=== PATIENT | female | born 1985 | race Caucasian/White ===

== ENCOUNTER 2020-04-13 17:41 | Observation (INO) | payer OTHER ==
[~2020-04-13] VITALS: Ht 157.5 cm; Wt 57.8 kg
[2020-04-13 18:23] LABS: BASOPHILS ABSOLUTE AUTO 0.03 K/mm3 (0.00-0.23); BASOPHILS PERCENT AUTO 1 % (0-2); EOSINOPHILS ABSOLUTE AUTO 0.26 K/mm3 (0.00-0.68); EOSINOPHILS PERCENT AUTO 4 % (0-6); Hemoglobin 10.9 g/dL (11.5-16.0); IMMATURE GRAN ABSOLUTE AUTO 0.01 K/mm3 (0.00-0.10); IMMATURE GRAN PERCENT AUTO 0 % (0-1); LYMPHOCYTES ABSOLUTE AUTO 1.09 K/mm3 (0.84-5.20); LYMPHOCYTES PERCENT AUTO 17 % (21-46); MONOCYTES ABSOLUTE AUTO 0.61 K/mm3 (0.16-1.47); MONOCYTES PERCENT AUTO 9 % (4-13); Mean Corpuscular HGB 32.2 pg (26.0-34.0); Mean Corpuscular HGB Conc 31.1 g/dL (31.5-36.5); Mean Corpuscular Volume 104 fL (80-100); Mean Platelet Volume 9.3 fL (9.1-12.4); NEUTROPHILS ABSOLUTE AUTO 4.55 K/mm3 (1.96-9.15); NEUTROPHILS PERCENT AUTO 69 % (41-73); Platelet Count 263 K/mm3 (150-400); RDW Coefficient Variation 13.8 % (11.7-14.2); Red Blood Cell Count 3.38 M/mm3 (3.80-5.20); White Blood Cell Count 6.55 K/mm3 (4.00-11.30)
[2020-04-13 18:38] LABS: Magnesium, Blood 3.1 mg/dL (1.6-2.4)
[2020-04-13 18:47] LABS: Albumin, Blood 3.4 g/dL (3.4-5.0); Albumin/Globulin Ratio 0.6 (0.8-1.8); Bilirubin, Total 0.4 mg/dL (0.1-1.0); Bun/Creatinine Ratio 8.6 (12.0-20.0); Calcium, Blood 9.1 mg/dL (8.5-10.1); Globulin, Blood 5.4 g/dL (2.2-4.0); Total Protein, Blood 8.8 g/dL (6.4-8.2)
[2020-04-13] MEDS ORDERED: SUCROFERRIC OXYHYDROXIDE PO (19:51)
[2020-04-13] MEDS ORDERED: LOKELMA 10 GM PO (19:53)
[2020-04-13] MEDS ORDERED: ELIQUIS5 MG PO (20:42)
--- NOTE | 2020-04-13 21:01 | NUR ---
HD 1:1 NON-ROUTINE HOURS HEMODIALYSIS ORDERED BY DR CHAMBERLAIN FOR TRANSIENT PATIENT FROM [facility] WHO PRESENTED TO ER REQUESTING DIALYSIS WITH SERUM K+ 7.0
[2020-04-13] MEDS ORDERED: Calcium Acetat667 MG PO (21:08)
[2020-04-13] MEDS ORDERED: Imdur30 MG PO (21:09)
[2020-04-13] MEDS ORDERED: CARVEDILOL3.125 MG PO (21:09)
[2020-04-13] MEDS ORDERED: Nicoderm Cq1 EACH TD (21:09)
[2020-04-13] MEDS ORDERED: CINA30 PO (21:10)
[2020-04-13] MEDS ORDERED: ADALAT CC30 MG PO (21:10)
[2020-04-13] MEDS ORDERED: SKYADERM-LP 2.1 EACH TOP (21:12)
--- NOTE | 2020-04-14 01:27 | NUR ---
SHORT STAY SUMMARY PT ARRIVED TO THE UNIT AROUND 2120, ABLE TO AMBULATE WITH NO COMPLAINTS OF PAIN OR SOB. BP HYPERTENSIVE 170'S/100'S. HR 80-90'S. ON ROOM AIR WITH O2 SATS >97%. PT WAS ALERT AND ORIENTED BUT DIFFICULT TO DIRECT WITH QUESTIONS, SEEMED VERY ANXIOUS AND FIDGETY. PT CONSTANTLY STATED SHE ONLY WANTED DIALYSIS AND THAT WAS THE ONLY REASON SHE WAS HERE. PT COMPLETED DIALYSIS AND STATED SHE WAS LEAVING. EDUCATED PATIENT ABOUT THE RISKS OF LEAVING AMA. PT VERY DETERMINED TO LEAVE IMMEDIATELY. PT SIGNED AMA PAPERWORK, I PULLED HER IV AND SHE WALKED OUT.
== END 2020-04-14 00:57 | disposition home or self-care (01) ==
LOC: ER 17:41 → PCU 21:02
PROVIDERS: Physician Assistant; ADMIT Family Medicine
DX: I12.0 Hypertensive chronic kidney disease with stage 5 chronic kidney disease or end stage renal disease (principal); N18.6 End stage renal disease; D63.1 Anemia in chronic kidney disease; E87.79 Other fluid overload; E87.5 Hyperkalemia; E87.1 Hypo-osmolality and hyponatremia; I16.0 Hypertensive urgency; N25.81 Secondary hyperparathyroidism of renal origin; L03.114 Cellulitis of left upper limb; F41.9 Anxiety disorder, unspecified; F17.210 Nicotine dependence, cigarettes, uncomplicated; R60.0 Localized edema; Z99.2 Dependence on renal dialysis; Z91.15 Patient's noncompliance with renal dialysis; Z79.01 Long term (current) use of anticoagulants
CPT/HCPCS: 80053; 82947; 83735; 85025; 93005; 93010; 94644; 96374; 96375; 99285-25; A9270; G0257; G0378; J0610; J1815

== ENCOUNTER 2020-04-16 17:41 | Observation (INO) | payer OTHER ==
[~2020-04-16] VITALS: Ht 157.5 cm; Wt 57.6 kg
[~2020-04-16 17:41] MED LIST: ADALAT CC30 MG PO; CARVEDILOL3.125 MG PO; CINA30 PO; Calcium Acetat667 MG PO; ELIQUIS5 MG PO; Imdur30 MG PO; LOKELMA 10 GM PO; Nicoderm Cq1 EACH TD; SKYADERM-LP 2.1 EACH TOP; SUCROFERRIC OXYHYDROXIDE PO
[2020-04-16 19:10] LABS: BASOPHILS ABSOLUTE AUTO 0.03 K/mm3 (0.00-0.23); BASOPHILS PERCENT AUTO 1 % (0-2); EOSINOPHILS PERCENT AUTO 2 % (0-6); Hematocrit 36.1 % (33.0-51.0); Hemoglobin 11.6 g/dL (11.5-16.0); IMMATURE GRAN ABSOLUTE AUTO 0.02 K/mm3 (0.00-0.10); IMMATURE GRAN PERCENT AUTO 0 % (0-1); LYMPHOCYTES PERCENT AUTO 12 % (21-46); MONOCYTES PERCENT AUTO 12 % (4-13); Mean Corpuscular HGB 32.6 pg (26.0-34.0); Mean Corpuscular HGB Conc 32.1 g/dL (31.5-36.5); Mean Corpuscular Volume 101 fL (80-100); Mean Platelet Volume 9.9 fL (9.1-12.4); NEUTROPHILS ABSOLUTE AUTO 3.88 K/mm3 (1.96-9.15); NEUTROPHILS PERCENT AUTO 74 % (41-73); Platelet Count 202 K/mm3 (150-400); RDW Coefficient Variation 13.7 % (11.7-14.2); RDW Standard Deviation 50.8 fL (35.1-46.3); Red Blood Cell Count 3.56 M/mm3 (3.80-5.20); White Blood Cell Count 5.23 K/mm3 (4.00-11.30)
[2020-04-16 19:35] LABS: Albumin, Blood 3.6 g/dL (3.4-5.0); Albumin/Globulin Ratio 0.6 (0.8-1.8); Bilirubin, Total 0.4 mg/dL (0.1-1.0); Calcium, Blood 9.8 mg/dL (8.5-10.1); Globulin, Blood 5.6 g/dL (2.2-4.0); Total Protein, Blood 9.2 g/dL (6.4-8.2)
[2020-04-16 19:37] LABS: Bun/Creatinine Ratio 8.4 (12.0-20.0); Creatinine, Blood 10.1 mg/dL (0.40-1.00); Potassium, Blood 7.5 mmol/L (3.5-5.5)
[2020-04-16] MEDS ORDERED: SENSIPAR60 MG PO (19:54)
--- NOTE | 2020-04-16 21:45 | NUR ---
ADMIT/ASSESSMENT PT ADMITTED TO ICU 16 VIA ER. PT ARRIVED VIA GURNEY AND TRANSFERED TO BED BY STAFF WITH SLIDER SHEET. PT AWAKE A&O. C/O PAIN TO BACK/GROIN AND LEFT ARM STATES,"01/22". LUNGS CLEAR ON ROOMAIR. RESP EVEN AND NONLABORED. SPO2 99-100% ON ROOMAIR. HEART RATE REGULAR 90'S. BP ELEVATED. AWAITING DIALYSIS. IV 24 G TO RIGHT HAND, SALINE LOCKED. CENTRAL LINE TO RIGHT GROIN, BLOODY DRAINAGE AROUND CATH. DRSG CHANGED. AV FISTULA TO LEFT UPPER ARM. PT ABLE TO ANSWER QUESTIONS AND MOVE SELF AROUND IN BED.
--- NOTE | 2020-04-16 22:46 | NUR ---
PAIN/DIET/HYPERTENSION CALL TO DR MELO REGARDING C/O PAIN TO LEFT ARM. RECEIVED ORDER FOR FENTANYL. NOTIFIED REGARDING HTN 213/113, PT JUST STARTING DIALYSIS, CONT TO MONITOR AT THIS TIME. INCREASED DIET TO RENAL. PT GIVEN SANDWICH, ICE CREAM AND ICE WATER.
--- NOTE | 2020-04-16 23:02 | NUR ---
PAIN DIALYSIS IN PROGRESS. PT MED WITH FENTANYL 25 MCQ FOR GENERAL PAIN.
--- NOTE | 2020-04-16 23:44 | NUR ---
ANXIOUS PT MOANING AND CRYING. MED WITH ATIVAN 0.5 MG IV. DIALYSIS RUNNING
--- NOTE | 2020-04-17 01:43 | NUR ---
DIALYSIS PT SLEEPING. DIALYSIS COMPLETE. 3000ML OFF. ANCEF GIVEN.
[2020-04-17 03:51] LABS: BASOPHILS ABSOLUTE AUTO 0.03 K/mm3 (0.00-0.23); BASOPHILS PERCENT AUTO 1 % (0-2); EOSINOPHILS ABSOLUTE AUTO 0.06 K/mm3 (0.00-0.68); EOSINOPHILS PERCENT AUTO 1 % (0-6); Hematocrit 33.4 % (33.0-51.0); Hemoglobin 10.5 g/dL (11.5-16.0); IMMATURE GRAN ABSOLUTE AUTO 0.01 K/mm3 (0.00-0.10); IMMATURE GRAN PERCENT AUTO 0 % (0-1); LYMPHOCYTES ABSOLUTE AUTO 0.52 K/mm3 (0.84-5.20); LYMPHOCYTES PERCENT AUTO 8 % (21-46); MONOCYTES ABSOLUTE AUTO 0.76 K/mm3 (0.16-1.47); MONOCYTES PERCENT AUTO 12 % (4-13); Mean Corpuscular HGB Conc 31.4 g/dL (31.5-36.5); Mean Corpuscular Volume 102 fL (80-100); Mean Platelet Volume 9.8 fL (9.1-12.4); NEUTROPHILS ABSOLUTE AUTO 5.04 K/mm3 (1.96-9.15); NEUTROPHILS PERCENT AUTO 79 % (41-73); Platelet Count 261 K/mm3 (150-400); RDW Coefficient Variation 13.6 % (11.7-14.2); RDW Standard Deviation 51.4 fL (35.1-46.3); Red Blood Cell Count 3.28 M/mm3 (3.80-5.20); White Blood Cell Count 6.42 K/mm3 (4.00-11.30)
[2020-04-17 04:12] LABS: Albumin, Blood 3.4 g/dL (3.4-5.0); Albumin/Globulin Ratio 0.6 (0.8-1.8); Bilirubin, Total 0.3 mg/dL (0.1-1.0); Bun/Creatinine Ratio 7.3 (12.0-20.0); Calcium, Blood 9.3 mg/dL (8.5-10.1); Creatinine, Blood 6.01 mg/dL (0.40-1.00); Globulin, Blood 5.7 g/dL (2.2-4.0); Magnesium, Blood 2.3 mg/dL (1.6-2.4); Phosphorus, Blood 4.6 mg/dL (2.5-4.9); Potassium, Blood 5.7 mmol/L (3.5-5.5); Total Protein, Blood 9.1 g/dL (6.4-8.2)
--- NOTE | 2020-04-17 06:02 | NUR ---
SHIFT SUMMARY PT ADMITED TO ICU 16 DURING THE NIGHT. DIALYSIS DONE WITH 3000 ML REMOVED. HTN RESOLVED WITH DIALYSIS. PT MED WITH FENTANYL 25 MCQ FOR GENERAL PAIN WITH LITTLE RESULTS. PT MED WITH ATIVAN 0.5 MG FOR ANXIETY WITH GOOD RESULTS. CENTRAL LINE TO RIGHT GROIN DRSG CHANGED THREE TIMES DURING THE NIGHT DUE TO BLEEDING AT SITE. HOANG DRSG APPLIED TO HELP STOP BLEEDING WITH GOOD RESULTS. AV FISTULA TO LEFT UPPER ARM DRSG INTACT, NO BLEEDING. LEFT LOWER ARM WITH SWELLING AND REDNESS, NO CHANGE DURING THE NIGHT. PT MOVING SELF AROUND IN BED. VSS. NO ACUTE CHANGE. POSSIBLE DIALYSIS AGAIN TODAY. REPORT TO ON COMING NURSE.
--- NOTE | 2020-04-17 08:00 | NUR ---
ASSUMED CARE BEDSIDE REPORT RECIEVED. PT IS SLEEPING INITIALLY. PT AROUSEABLE TO VERBAL STIMULI. PT IS DROWSEY, BUT ALERT AND ORIENTED. PT DENIES PAIN OR DISCOMFORT AT THIS TIME. VITAL SIGNS STABLE. AV FISTULA TO ALEX NOTED. DRESSING IN PLACE. LEFT ARM REDDENED AND SWOLLEN. CENTRAL LINE TO RIGHT FEMORAL SITE IN PLACE, SALINE LOCKED. PT MAEW. WILL CONTINUE TO MONITOR.
--- NOTE | 2020-04-17 17:38 | NUR ---
SHIFT SUMMARY/TRANSFER OUT NO ACUTE CHANGES THIS SHIFT. PT HAS SLEPT OFF AND ON THROUGHOUT THE DAY. WHEN AWAKE PT IS ALERT AND ORIENTED. VITAL SIGNS STABLE. PT ON ROOM AIR. PT RECIEVED DIALYSIS THIS AFTERNOON WITH AROUND 2200 ML FLUID OFF. PT WITH SWELLING AND REDDENED AREA TO LEFT ARM IS UNCHANGED. CENTRAL LINE TO RIGHT FEMORAL SITE IS IN PLACE, SALINE LOCKED. PT SIGNIFICANT OTHER AT BEDSIDE AT THIS TIME. REPORT CALLED, PT TO BE TRANSFERED TO ROOM [facility] AT THIS TIME. PT TAKEN BY CORRECTIONAL PROGRAM SPECIALIST VIA BED. ALL PT BELONGINGS TAKEN WITH PT.
--- NOTE | 2020-04-17 17:38 | NUR ---
RECEIVED REPORT FROM CHITO FROM ICU. PT TO TRANSFER TO ROOM 211. CC
--- NOTE | 2020-04-17 18:04 | NUR ---
ARRIVED FROM ICU AT 1745. PT ARRIVED FROM ICU, TRANSFERRED ON BED INDEPENDTLY. PT DENIES PAIN, CHEST PAIN, SOB, NAUSEA AND VOMITING. PT HAS A CENTRAL LINE IN HER R GROIN, PATENT. LEFT UPPER ARM FISTULA IS PRESENT FOR DIALYSIS TREATMENT. LEFT ARM IS SWELLING AND OOZING R/T CELLULITS. SHE IS ALERT AND ORIENTED. DECREASE APPETITE BUT DENIES N/V. LUNGS ARE CLEAR. PT DENIES NUMBNESS AND TINGLING SENSATION. CALL LIGHT W/IN REACH.
--- NOTE | 2020-04-17 19:18 | NUR ---
SHIFT SUMMARY PT ARRIVED FROM ED AT 1845. PT INDEPENDENT IN ROOM. PT DENIES CP, NUMBNESS AND TINGLING SENSATION. HE HAS CA GLUCONATE INFUSING ON R ARM. LEFT ARM HAS FISTULA. LUNGS ARE CLEAR. PT REPORTS CHRONIC SOB. PULSES ON ALL EXT ARE WNL. HEPARIN DRIP BAG WAS BROUGHT IN FROM ED. HE IS ALERT AND ORIENTED. HE DENIES PAIN, NAUSEA AND VOMITING. CALL LIGHT W/IN REACH.
--- NOTE | 2020-04-18 04:00 | NUR ---
COMMERCIAL LOAN PROCESSOR SUMMARY A/OX4, IND TO BATHROOM. L ARM FISTULA NOTED WELL CENTRAL LINE TO R. GROIN. L. ARM HAS SWELLING, REDNESS, AND WARMTH TO THE TOUCH. PT C/O PAIN IN THE AREA, MEDICATED PER EMAR X2. RECIEVED IV ANCEF THIS SHIFT. VSS, NO ACUTE CHANGES AT THIS TIME. BED IN LOWEST POSITION WITH CALL LIGHT IN REACH. WILL CONTINUE TO MONITOR AND REPORT TO ONCOMING RN.
[2020-04-18 05:42] LABS: Hematocrit 32.5 % (33.0-51.0); Hemoglobin 10.1 g/dL (11.5-16.0)
[2020-04-18 06:03] LABS: Albumin, Blood 2.9 g/dL (3.4-5.0); Anion Gap 8 mmol/L (6-16); Blood Urea Nitrogen 37 mg/dL (8-24); Bun/Creatinine Ratio 6.5 (12.0-20.0); CO2, Blood 31 mmol/L (21-32); Calcium, Blood 8.7 mg/dL (8.5-10.1); Chloride, Blood 90 mmol/L (98-108); Creatinine, Blood 5.66 mg/dL (0.40-1.00); Glomerular Filtration Rate 9 (60-); Glucose, Blood 123 mg/dL (70-99); Magnesium, Blood 2.4 mg/dL (1.6-2.4); Phosphorus, Blood 4.8 mg/dL (2.5-4.9); Potassium, Blood 5.4 mmol/L (3.5-5.5); Sodium, Blood 129 mmol/L (136-145)
[2020-04-18 08:10] LABS: HBSAG SCREEN Negative (Negative); HEP A AB, IGM Negative (Negative); HEP B CORE AB, IGM Negative (Negative); HEP C VIRUS AB <0.1 (0.0-0.9)
[2020-04-18] MEDS ORDERED: CEPH250A PO (13:09)
--- NOTE | 2020-04-18 17:46 | NUR ---
SHIFT SUMMARY PT A&OX4, VSS/RA, PLAN IS FOR DIALYSIS 0900 TOMORROW AND THEN DC HOME. PAIN MANAGED WITH 25 MCGS FENT Q4H. JOSE PO, DENIES N&V. VOIDING WELL. AMBULATING INDEPENDENTLY IN ROOM TO BRP. WILL REPORT TO ONCOMING HOMER RN.
--- NOTE | 2020-04-19 03:51 | NUR ---
TRUST ADVISOR SUMMARY A/OX4. CONTINUES TO HAVE SWELLING/REDNESS IN ALEX. C/O PAIN IN THE AREA, MEDICATED PER EMAR. PLAN IS FOR DIALYSIS THIS AM AND THEN D/C. VSS, NO ACUTE CHANGES AT THIS TIME. BED IN LOWEST POSITION WITH CALL LIGHT IN REACH. WILL CONTINUE TO MONITOR AND REPORT TO ONCOMING RN.
[2020-04-19 05:06] LABS: Hematocrit 32.5 % (33.0-51.0); Hemoglobin 10.2 g/dL (11.5-16.0)
[2020-04-19 05:36] LABS: Albumin, Blood 2.8 g/dL (3.4-5.0); Anion Gap 8 mmol/L (6-16); Blood Urea Nitrogen 54 mg/dL (8-24); Bun/Creatinine Ratio 7.2 (12.0-20.0); CO2, Blood 31 mmol/L (21-32); Calcium, Blood 8.2 mg/dL (8.5-10.1); Chloride, Blood 90 mmol/L (98-108); Creatinine, Blood 7.53 mg/dL (0.40-1.00); Glomerular Filtration Rate 7 (60-); Glucose, Blood 99 mg/dL (70-99); Magnesium, Blood 2.7 mg/dL (1.6-2.4); Phosphorus, Blood 5.7 mg/dL (2.5-4.9); Potassium, Blood 4.9 mmol/L (3.5-5.5); Sodium, Blood 129 mmol/L (136-145)
[2020-04-19] MEDS ORDERED: ELIQUIS2.5 MG PO (10:48)
[2020-04-19] MEDS ORDERED: CEPH250A PO (10:49)
[2020-04-19 11:23] LABS: Influenza A, PCR NEGATIVE (NEGATIVE); Influenza B, PCR NEGATIVE (NEGATIVE); Resp Syncytial Virus, PCR NEGATIVE (NEGATIVE); SARS-Cov-2 (COVID-19) PCR, MMC NEGATIVE (NEGATIVE)
== END 2020-04-19 13:46 | disposition home or self-care (01) ==
LOC: ER 17:41 → ICUW 17:42 → ER 20:43 → ICUW 21:35 → SURS 04-17 17:57
PROVIDERS: Internal Medicine; Internal Medicine Nephrology; Physician Assistant; ADMIT Internal Medicine
DX: I12.0 Hypertensive chronic kidney disease with stage 5 chronic kidney disease or end stage renal disease (principal); N18.6 End stage renal disease; I16.0 Hypertensive urgency; L03.114 Cellulitis of left upper limb; E87.79 Other fluid overload; R60.0 Localized edema; E87.5 Hyperkalemia; E87.1 Hypo-osmolality and hyponatremia; N25.81 Secondary hyperparathyroidism of renal origin; F17.210 Nicotine dependence, cigarettes, uncomplicated; F41.9 Anxiety disorder, unspecified; D64.9 Anemia, unspecified; T82.838A Hemorrhage due to vascular prosthetic devices, implants and grafts, initial encounter; T45.515A Adverse effect of anticoagulants, initial encounter; Y83.8 Other surgical procedures as the cause of abnormal reaction of the patient, or of later complication, without mention of misadventure at the time of the procedure; Z20.822 Contact with and (suspected) exposure to COVID-19; Z99.2 Dependence on renal dialysis; Z91.15 Patient's noncompliance with renal dialysis; Z79.01 Long term (current) use of anticoagulants
CPT/HCPCS: 0241U; 36415; 80053; 80069; 80074; 82533; 83735; 84100; 85014; 85018; 85025; 86317; 93005; 93010; 93971; 93990; 96372; 96374-59; 96375; 96375-59; 96376; 99285-25; A9270; C1751; G0257; G0378; J0610; J0690; J0881; J1815; J2060; J3010